=== PATIENT | male | born 1995 | race Two or more races ===

== ENCOUNTER 2020-10-01 04:31 | Emergency (ER) | payer SELFPAY ==
[~2020-10-01] VITALS: Ht 152.4 cm; Wt 61.2 kg
[2020-10-01 04:35] VITALS: BP 132/76
[2020-10-01] MEDS ORDERED: LIDOCAINE 1%-EPI 1:100,000 20 ML VIAL ONE (04:48)
[2020-10-01] MEDS ORDERED: TDAP [DIPH/PERTUSSIS/TET] 0.5 ML VIAL IM ONE (05:06)
[2020-10-01] MEDS: TDAP [DIPH/PERTUSSIS/TET] 0.5 ML VIAL IM ONE (05:10)
== END 2020-10-01 05:16 | disposition home or self-care (01) ==
LOC: ER 04:31
DX: S01.01XA Laceration without foreign body of scalp, initial encounter (principal); W01.0XXA Fall on same level from slipping, tripping and stumbling without subsequent striking against object, initial encounter; Y93.89 Activity, other specified; Y92.89 Other specified places as the place of occurrence of the external cause; Y99.8 Other external cause status
CPT/HCPCS: 12001; 90471; 90715; 99283; J3490

== ENCOUNTER 2020-10-08 12:27 | Emergency (ER) | payer MEDICAID ==
[~2020-10-08] VITALS: Ht 152.4 cm; Wt 61.2 kg
[2020-10-08 12:51] VITALS: BP 100/59
--- NOTE | 2020-10-08 13:11 | NUR ---
Patient discharged to home in stable condition. Written and verbal after care instructions given. Patient verbalizes understanding of instruction.
== END 2020-10-08 13:11 | disposition home or self-care (01) ==
LOC: ER 12:30
DX: S01.01XD Laceration without foreign body of scalp, subsequent encounter (principal); X58.XXXD Exposure to other specified factors, subsequent encounter